=== PATIENT | male | born 1995 | race Two or more races ===

== ENCOUNTER 2016-08-13 14:45 | Emergency (ER) | payer MEDICAID ==
[~2016-08-13] VITALS: Ht 182.9 cm; Wt 68.0 kg
[2016-08-13] MEDS ORDERED: SODIUM CHLORIDE 0.9% 1,000 ML IV ONE (15:45)
[2016-08-13] MEDS ORDERED: ONDANSETRON HCL 4 MG/2 ML VIAL IV ONE (15:45)
[2016-08-13] MEDS ORDERED: HYDROmorphone HCL 2 MG/ML VL IV ONE ×3 (15:45→19:15)
[2016-08-13 15:51] LABS: Basophils # (auto) 0 uL; Basophils % (auto) 0.1 % (0.0-2.0); Eosinophils # (auto) 0 uL; Eosinophils % (auto) 0.1 % (0.0-7.0); Hematocrit 43.6 % (41.0-53.0); Hemoglobin 15.1 g/dL (13.5-17.5); Lymphocytes % (auto) 6.7 % (10.0-50.0); Mean Corpuscular Hemoglobin 33.8 pg (28.0-32.0); Mean Corpuscular Hgb Conc. 34.5 g/dL (32.0-36.0); Mean Platelet Volume 10.1 fL (7.4-10.4); Monocytes # (auto) 0.7 uL; Monocytes % (auto) 4.5 % (0.0-12.0); Neutrophils # (auto) 13.4 uL; Neutrophils % (auto) 88.6 % (37.0-80.0); Platelet Count (auto) 178 10^3/uL (140-450); Red Cell Distribution Width 12.2 % (11.6-16.0); White Blood Cell 15.1 10^3/uL (4.4-10.8)
[2016-08-13 16:08] LABS: Albumin 4.3 g/dL (3.4-5.0); BUN/Creatinine Ratio 10.7; Bilirubin, Total 0.5 mg/dL (0.2-1.0); Calcium 8.9 mg/dL (8.5-10.1); Potassium 3.3 mmol/L (3.5-5.1); Total Protein 7.5 g/dL (6.4-8.2)
[2016-08-13 16:12] LABS: Urine Bilirubin Negative (Negative); Urine Glucose TRACE mg/dL (Normal); Urine Ketone Negative (Negative); Urine Nitrite Negative (Negative); Urine RBC 109916 /hpf (0 - 3); Urine Urobilinogen Normal (Negative)
[2016-08-13 16:41] LABS: Urine Blood 2+ /uL (Negative); Urine Color Red (Yellow)
[2016-08-13 19:09] VITALS: BP 125/72
== END 2016-08-13 19:36 | disposition short-term general hospital (02) ==
LOC: ER 14:51
DX: S37.20XA Unspecified injury of bladder, initial encounter (principal); X58.XXXA Exposure to other specified factors, initial encounter; Y93.89 Activity, other specified; Y99.8 Other external cause status; Y92.89 Other specified places as the place of occurrence of the external cause
CPT/HCPCS: 36415; 51702; 74176; 76870; 80053; 81001; 85025; 86850; 86900; 86901; 94761; 96361; 96374; 96375; 96376; 99285; J1170; J2405